=== PATIENT | female | born 1975 | race Two or more races ===

== ENCOUNTER 2023-03-27 05:33 | Emergency (ER) | payer OTHER ==
[~2023-03-27] VITALS: Ht 160 cm; Wt 68.0 kg
[2023-03-27] MEDS ORDERED: IPRATROPIUM NEB FS 0.5 MG/2.5 ML AMPUL.NEB ONE (07:24)
[2023-03-27] MEDS ORDERED: ALBUTEROL FS 2.5 MG/3 ML VIAL.NEB ONE (07:25)
[2023-03-27 07:30] VITALS: O2SAT 96
[2023-03-27] MEDS ORDERED: predniSONE 50 MG TABLET PO ONE (07:30)
[2023-03-27] MEDS ORDERED: ALBUTEROL FS 2.5 MG/3 ML VIAL.NEB NEB ONE (07:30)
[2023-03-27] MEDS ORDERED: IPRATROPIUM NEB FS 0.5 MG/2.5 ML AMPUL.NEB NEB ONE (07:30)
[2023-03-27 07:45] VITALS: O2SAT 99
[2023-03-27] MEDS ORDERED: predniSONE 20 MG TABLET ONE (07:56)
[2023-03-27] MEDS ORDERED: predniSONE 20 MG TABLET PO ONE (08:00)
[2023-03-27] MEDS ORDERED: ALBU18HF2 INH (08:38)
[2023-03-27] MEDS ORDERED: PRED20TA PO (08:38)
[2023-03-27 09:02] VITALS: BP 131/77; TEMP 97.5; O2SAT 100
== END 2023-03-27 09:03 | disposition home or self-care (01) ==
LOC: ER 05:35
DX: J45.901 Unspecified asthma with (acute) exacerbation (principal); Z88.8 Allergy status to other drugs, medicaments and biological substances; Z59.00 Homelessness unspecified
CPT/HCPCS: 99285; 71045; 94640; J7512